=== PATIENT | female | born 1995 | race Caucasian/White ===

== ENCOUNTER 2022-01-01 10:25 | Emergency (ER) | payer OTHER, SELFPAY ==
[2022-01-01 10:42] VITALS: BP 119/83; PULSE 94; RESP 18; TEMP 36.6; O2SAT 98; BMI 29.8
--- NOTE | 2022-01-01 10:58 | ED.WOUNDLAC ---
HPI - Wound/Laceration General Chief Complaint: Wound/Laceration Stated Complaint: lump under armpit and is spreading hot & painfull Time Seen by Provider: 01/01/22 10:36 Source: patient Mode of arrival: Ambulatory History of Present Illness HPI narrative: 26-year-old female who is here for evaluation of a lump and redness and increasing pain under her right armpit. She started noticing a couple days ago. It has significantly worsened over the past 6-8 hours. She has never had anything like this in the past. Is not tried anything for the symptoms prior to arrival. Related Data Previous Rx's Medication Instructions Recorded doxycycline hyclate 100 mg tablet 100 mg PO BID 5 days #10 tabs 01/01/22 Allergies Allergy/AdvReac Type Severity Reaction Status Date / Time adhesive AdvReac Mild Verified 01/01/22 10:53 Review of Systems Constitutional Constitutional: Denies fever(s) Musculoskeletal Musculoskeletal: Reports system reviewed and no additional complaints, except as documented Integumentary/Breasts Skin/Breast: Reports system reviewed and no additional complaints, except as documented Hematologic/Lymphatic On Anticoagulants: No Patient History Medical History Healthy adult Social History Smoking Status: Current every day smoker Smoking Status: Current every day smoker alcohol intake frequency: a few times a week Substance Use Type: marijuana Exam Initial Vital Signs Initial Vital Signs: Vital Signs Temperature 97.9 F 01/01/22 10:42 Pulse Rate 94 H 01/01/22 10:42 Respiratory Rate 18 01/01/22 10:42 Blood Pressure 119/83 01/01/22 10:42 Pulse Oximetry 98 01/01/22 10:42 Oxygen Delivery Method 01/01/22 10:42 Const General: cooperative and comfortable HENMT Head: normal to inspection and normocephalic Skin Other: Patient with a 3 cm x 3 cm area of induration with a 1 cm x 1 cm area of redness in her right armpit. No active draining. Extrem General: normal to inspection Procedures Abscess I/D I&D #1: Site: other (Armpit) Side (if applicable): right Local Anesthetic: lidocaine 1% Amount of anesthesia used (mL): 2 Technique: incised with #11 blade Packing used?: none Course Vital Signs Vital signs: Vital Signs - 8 hr 01/01/22 10:42 Temperature 97.9 F Pulse Rate 94 H Respiratory Rate 18 Blood Pressure 119/83 Pulse Oximetry 98 Oxygen Delivery Method Room Air MDM - Wound/Laceration MDM Narrative Medical decision making narrative: Bedside ultrasound did show a small abscess in the right armpit. There is some surrounding erythema. The abscess was drained as described above. Patient tolerated well. Because of the cellulitis will start the patient on antibiotics. She is nontoxic appearing. She was given return precautions. She expressed understanding and agreement. Discharge Plan Departure Patient Disposition: Home Clinical Impression: Abscess Instructions: DI for Skin Abscess Activity Restrictions/Additional Instructions: Take antibiotics as directed. You can shower like normal. Expect some oozing from the area over the next 24-48 hours. Just replace the bandages needed. Return to the emergency department for any new or worsening symptoms. Prescriptions: New doxycycline hyclate 100 mg tablet 100 mg PO BID 5 Days Qty: 10 0RF
[2022-01-01 11:08] VITALS: BP 119/83; PULSE 89; RESP 18; O2SAT 98
== END 2022-01-01 11:19 | disposition home or self-care (01) ==
PROVIDERS: Emergency Provider Emergency Medicine
DX: L02.411 Cutaneous abscess of right axilla (principal)
CPT/HCPCS: 10060; 99281; 99283